=== PATIENT | male | born 1985 | race Two or more races ===

== ENCOUNTER 2024-04-22 09:04 | Emergency (ER) | payer MEDICAID, SELFPAY ==
[2024-04-22 09:13] VITALS: BP 161/100; PULSE 78; RESP 22; TEMP 36.6; O2SAT 100
--- NOTE | 2024-04-22 09:14 | PD.EDNV ---
Nausea/Vomit./Diarrhea-RME/HPI General Chief complaint: Nausea/Vomiting/Diarrhea Stated complaint: VOMITING, ANXIOUS Time Seen by Provider: 04/22/24 09:07 Arrival date/time: 04/22/24 09:04 RME / HPI RME / HPI Narrative: This section includes all my notes and documentations, including HPI, PE, MDM, Procedure Notes, and PLAN. Phil Pratt MD HPI: 38 year old male with history of depression on Zoloft presents to the ED for complaint of nausea and vomiting beginning this morning. Reports vomiting a total of 5 times, nonbloody, nonbilious. Accompanied by feeling very shaky and anxious. Patient unable to report why he is feeling anxious. Denies fevers, chills, chest pain, shortness of breath, abdominal pain, diarrhea, or constipation. No other complaints reported. ROS: Respiratory: negative except as documented in HPI. Gastrointestinal: negative except as documented in HPI. Musculoskeletal: negative except as documented in HPI. Skin: negative except as documented in HPI. Neurological: negative except as documented in HPI. Physical Exam: General:? Alert and oriented.??Appears severely anxious. Eyes:? Conjunctivae and lids clear.?? ENT:? No nasal congestion.?? Neck:? Supple.?? Heart: RRR. Lungs:? No respiratory distress.?? Abdomen: Soft with mild epigastric tenderness. Normal BS. No distention. No rebound or guarding. Skin:? Warm and dry.?? Neuro:? Alert and oriented X 3. Zofran ODT and Xanax 0.75 mg given. 0955: Patient states he threw up his Xanax and is still feeling very anxious. Ativan 2 mg IM given. He felt much better. Recommended more outpatient care. Discharge Instructions from Dr. Pratt printed for you: 1. Take omeprazole every morning and famotidine every night for 7 days then as needed for your GERD, see attached handout. 2. Zofran for nausea/vomiting. Clear liquid diet for 24 hours then advance diet slowly as tolerated. 3. See a private doctor on 04/23/2024. To make sure there is no serious intra-abdominal condition, ask for help with more investigation not available here in the ER. Such as EGD or scoping the stomach, colonoscopy or scoping the colon, and referral to see tool room supervisor. To make sure there is no serious underlying heart condition, ask to help you get more tests for your heart that cannot be done here in the ER. Such as Holter Monitor (cardiac monitoring at home from a day to even a month), heart stress test (on treadmill or with medication), echocardiogram (imaging of your heart structures), heart catherization (checking for blockages in your heart arteries), and a referral to see a Poultry Processing Supervisor. 4. Seek immediate medical care with worsening or with any concerns. Phil Pratt MD Related Data Previous Rx's ?Medication ?Instructions ?Recorded famotidine 40 mg tablet 40 mg PO QDAY #30 tabs 04/22/24 omeprazole 40 mg capsule,delayed 40 mg PO QDAY #30 caps 04/22/24 release ondansetron 4 mg disintegrating 4 mg PO TID PRN nausea and 04/22/24 tablet vomiting 5 days #10 tabs Allergies Allergy/AdvReac Type Severity Reaction Status Date / Time No Known Allergies Allergy Verified 04/22/24 09:07 Review of Systems Review of Systems Systems Reviewed: All systems reviewed, normal except as documented Past Medical History Social History SMOKING STATUS: Never smoker ED Exam Narrative Physical exam: As noted in HPI Course Quality Measures none Orders Category Date Time Status ALPRazoLAM [Xanax] Med 04/22/24 09:12 Discontinued 0.75 mg PO X1 ONE LORazepam [Ativan Inj] Med 04/22/24 09:55 Discontinued 2 mg IM X1 ONE Ondansetron Odt [Zofran Odt] Med 04/22/24 09:12 Discontinued 4 mg PO X1 ONE Vital Signs Vital signs: Vital Signs Temperature 98 F 04/22/24 09:13 Pulse Rate 78 04/22/24 09:13 Respiratory Rate 22 H 04/22/24 09:13 Blood Pressure 161/100 H 04/22/24 09:13 Pulse Oximetry (%) 100 04/22/24 09:13 Pulse ox is 100% on room air which is adequate. Nausea/Vomiting/Diarrhea MDM Narrative MDM Narrative:: Yvrose Damon am scribing for and in the presence of Dr. Pratt. Patient data External records reviewed:: None Clinical information provided by:: patient and family Social determinants that could affect healthcare access:: substance use (Methamphetamine use ) Patient has the following chronic illnesses:: Depression, anxiety How is presenting disease/condition affected by chronic disease/condition?: exacerbated by Evaluation data The following diagnostics were reviewed and interpreted by me:: other (specify) (No diagnostic tests ordered) Lab and/or radiology exams considered but not ordered:: None Interpretation Summary: FSBS 131 Medications / Prescriptions Medications / Prescriptions considered but not ordered:: None Medication administrations:: Medication Administration History Discontinued Medications Alprazolam (Alprazolam 0.25 Mg Tablet) 0.75 mg PO X1 ONE Stop: 04/22/24 09:13 Last Admin: 04/22/24 09:28 Dose: 0.75 mg Documented By: MICHAEL Lorazepam (Lorazepam 2 Mg/Ml Vial) 2 mg IM X1 ONE Stop: 04/22/24 09:56 Last Admin: 04/22/24 09:59 Dose: 2 mg Documented By: WANDA Ondansetron HCl (Ondansetron Odt 4 Mg Tabrap) 4 mg PO X1 ONE; Protocol Stop: 04/22/24 09:13 Last Admin: 04/22/24 09:28 Dose: 4 mg Documented By: MICHAEL See chart Consultations Consultation(s) initiated? (list below): No Diagnosis Nausea Differential Diagnosis: drug-induced nausea and vomiting, dehydration and other (Anxiety, GERD) Most likely diagnosis given after review of the tests above:: GERD Admission Indicated Admission indicated?: not indicated Explain why admission is indicated or not indicated:: Does not meet admission criteria Admission Request Was there a request for admission?: No Disposition Plan Disposition Plan: Discharge Discharge Attestation Discharge Attestation: The patient and all family members were given an opportunity to ask questions and understood the discharge instructions. Discharge instructions specifically effects, indications for sooner follow up or return to the emergency department, and the expected course of current diagnosis. Patient condition: Stable Discharge Plan Plan Patient Disposition: HOME (Self Care) Prescriptions/Referrals Prescriptions/Med Rec: New famotidine 40 mg tablet 40 mg PO QDAY Qty: 30 0RF omeprazole 40 mg capsule,delayed release(DR/EC) 40 mg PO QDAY Qty: 30 0RF ondansetron 4 mg tablet,disintegrating 4 mg PO TID PRN (Reason: nausea and vomiting) 5 Days Qty: 10 0RF Referrals: Kemal Luz MD [Primary Care Provider] - In 1 week Problem List Clinical Impression: GERD (gastroesophageal reflux disease) Patient/Caregiver Discharge Instructions Discharge Activity: activity as tolerated Education Materials: ED GERD (Adult), ED Panic Attack Additional Instructions: Discharge Instructions from Dr. Pratt printed for you: 1. Take omeprazole every morning and famotidine every night for 7 days then as needed for your GERD, see attached handout. 2. Zofran for nausea/vomiting. Clear liquid diet for 24 hours then advance diet slowly as tolerated. 3. See a private doctor on 04/23/2024. To make sure there is no serious intra-abdominal condition, ask for help with more investigation not available here in the ER. Such as EGD or scoping the stomach, colonoscopy or scoping the colon, and referral to see tool room supervisor. To make sure there is no serious underlying heart condition, ask to help you get more tests for your heart that cannot be done here in the ER. Such as Holter Monitor (cardiac monitoring at home from a day to even a month), heart stress test (on treadmill or with medication), echocardiogram (imaging of your heart structures), heart catherization (checking for blockages in your heart arteries), and a referral to see a Poultry Processing Supervisor. 4. Seek immediate medical care with worsening or with any concerns. Print Language: Kyrgyz Stand Alone Forms: Trudy Award Info., Patient Portal Info Letter
[2024-04-22] MEDS: ALPRazoLAM 0.25 MG TABLET 0.75 MG PO (09:28)
[2024-04-22] MEDS: ONDANSETRON ODT 4 MG TABRAP PO (09:28)
[2024-04-22] MEDS: LORazepam 2 MG/ML VIAL IM (09:59)
[2024-04-22 11:04] VITALS: BP 131/97; PULSE 61; RESP 16; TEMP 36.6; O2SAT 100
== END 2024-04-22 11:11 | disposition home or self-care (01) ==
PROVIDERS: Emergency Provider Emergency Medicine; PCP Family Medicine
DX: K21.9 Gastro-esophageal reflux disease without esophagitis (principal)
CPT/HCPCS: 96372; 99283; J2060; Q0162; A9270

== ENCOUNTER 2024-04-22 18:42 | Emergency (ER) | payer MEDICAID, SELFPAY ==
[2024-04-22 18:57] VITALS: BP 174/84; PULSE 99; RESP 19; TEMP 36.7; O2SAT 98; BMI 33.4
--- NOTE | 2024-04-22 19:06 | EDRME_ITS ---
Rapid Medical Screening Exam RME Arrival date/time: 04/22/24 18:42 38M with history of drug/alcohol use presents to ED with N/V and gen ab pain/cramping. Apparently, patient recently got out of [facility] and relapsed. Patient was here earlier today for this. Chief Complaint: General Adult/Misc Complain Vital signs: Vital Signs Temperature 98.0 F 04/22/24 18:57 Pulse Rate 99 04/22/24 18:57 Respiratory Rate 19 04/22/24 18:57 Blood Pressure 174/84 H 04/22/24 18:57 Pulse Oximetry (%) 98 04/22/24 18:57 Oxygen Delivery Method Room Air 04/22/24 18:57
[2024-04-22] MEDS: DIAZEPAM 5 MG TABLET 10 MG PO (19:12)
[2024-04-22] MEDS: DiphenhydrAMINE 25 MG CAPSULE 50 MG PO (19:13)
[2024-04-22 19:33] LABS: Basophils % (Auto) 0 % (0-2.5); Eosinophils % (Auto) 0 % (0-10); Hematocrit 40.9 % (41.0-53.0); Immature Granulocytes % (Auto) 0 % (0-0); Immature Granulocytes Auto 0.07 Thou/mm3 (0.00-0.00); Lymphocytes # (Auto) 1.4 Thou/mm3 (1.0-4.8); Lymphocytes % (Auto) 9 % (10-50); Mean Corpuscular HGB Conc 36.7 g/dl (31.0-37.0); Mean Corpuscular Hemoglobin 31.9 pg (25.0-35.0); Mean Corpuscular Volume 87 fL (80-100); Monocytes # (Auto) 0.5 Thou/mm3 (0.0-0.8); Monocytes % (Auto) 3 % (0-12); Neutrophils # (Auto) 14.3 Thou/mm3 (1.8-7.7); Neutrophils % (Auto) 88 % (37-80); Nucleated Red Blood Cell % 0 /100 WBC (0); Platelet Count 274 Thou/mm3 (140-440); RDW Standard Deviation 39.6 fL (35.1-43.9); White Blood Count 16.4 Thou/mm3 (3.8-10.6)
[2024-04-22 19:56] LABS: Alanine Aminotransferase 29 U/L (10-49); Albumin, Serum 5.3 gm/dL (3.5-5.0); Albumin/Globulin Ratio 1.6 (1.2-2.2); Alcohol, Blood Medical < 3.0 mg/dL (0-10.0); Alkaline Phosphatase 116 U/L (46-116); Anion Gap 14 (7-16); Aspartate Amino Transferase 26 U/L (0-34); BUN/Creatinine Ratio 18 Ratio (12-20); Bilirubin,Total 1.1 mg/dL (0.3-1.2); Blood Urea Nitrogen 14 mg/dL (9-23); Chloride 101 mMol/L (98-107); Creatinine (Component) 0.8 mg/dL (0.6-1.3); Estimated Creatinine Clearance 143.4 mL/min (>60); Globulin 3.3 gm/dL (2.3-3.5); Glucose 139 mg/dL (74-106); Lipase 30 U/L (12-53); Osmolality,Calculated 272 (275-295); Potassium 3.9 mMol/L (3.4-5.1); Sodium 135 mMol/L (136-145); Total Protein 8.6 gm/dL (5.7-8.2); eGFR > 60 See Note
[2024-04-22 20:08] LABS: Collection Type, Urine Clean Catch; RBC,Urine 0 /hpf (0-3); WBC,Urine 0 /hpf (0-5)
[2024-04-22 20:31] LABS: Bacteria,Urine Rare; Bilirubin,Urine Negative (Negative); Blood,Urine Negative (Negative); Clarity,Urine Clear (Clear/Hazy); Color,Urine Lt-Yellow (Lt Yel-Yel); Glucose, Urine Negative (Negative); Ketones,Urine 4+ (Negative); Leukocyte Esterase,Urine Negative (Negative); Nitrite,Urine Negative (Negative); Protein,Urine 1+ (Neg - Trace); Specific Gravity,Urine 1.029 (1.001-1.035); Squamous Epithelial Cell,Urine < 1 /hpf (0-5); Urobilinogen,Urine Negative mg/dL (0.0-1.0)
[2024-04-22 21:16] LABS: Amphetamine/Methamp Scrn,U Negative (Negative); Barbiturate Screen,Urine Negative (Negative); Benzodiazepines Screen,Urine Positive (Negative); Benzoylecgonine Screen, Ur Negative (Negative); Fentanyl Screen,Urine Negative (Negative); Opiate Screen,Urine Negative (Negative); THC Screen,Urine Positive (Negative)
[2024-04-22 21:40] VITALS: BP 169/115; O2SAT 98
[2024-04-22 21:41] VITALS: BP 169/115; PULSE 92; RESP 18; TEMP 37.1; O2SAT 100
--- NOTE | 2024-04-22 21:51 | EDNOTE_ITS ---
<Statement entered by Nichole Rausch MD - 05/06/24 11:50> As co-signing physician, I was present and available for consult prn. I concur with the plan and care as documented by the midlevel provider. ED General RME/HPI General Chief complaint: General Adult/Misc Complain Stated complaint: VOMITING, WAS SEEN EARLIER Time Seen by Provider: 04/22/24 21:30 Source: patient Arrival date/time: 04/22/24 18:42 This is a 38-year-old male significant past medical history of anxiety and depression presents to the emergency department today for symptoms of feeling anxious nausea and vomiting. He does report feeling abdominal bloating hiccups that began this morning. History of chronic marijuana use reports he smokes marijuana all day long, for his anxiety symptoms. 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 Denies alcohol use. Currently uses Zoloft 200 mg for depression not currently on any anxiolytic per PCP. Denies any Suicidal or homicidal ideation. Mode of arrival: ambulatory RME / HPI RME / HPI narrative: 04/22/24 18:42 38M with history of drug/alcohol use presents to ED with N/V and gen ab pain/cramping. Apparently, patient recently got out of [facility] and relapsed. Patient was here earlier today for this. Related Data Previous Rx's ?Medication ?Instructions ?Recorded famotidine 40 mg tablet 40 mg PO QDAY #30 tabs 04/22/24 omeprazole 40 mg capsule,delayed 40 mg PO QDAY #30 caps 04/22/24 release Allergies Allergy/AdvReac Type Severity Reaction Status Date / Time No Known Allergies Allergy Verified 04/22/24 09:07 Review of Systems Review of Systems Systems Reviewed: All systems reviewed, normal except as documented Narrative Review of Systems: Gen: No fever, no chills, no weight loss EYES: No discharge, no visual changes, no pain HEENT: No ear pain, no congestion, no sore throat PULM: No shortness of breath, no cough, no congestion CV: No chest pain, no dyspnea on exertion, no palpitations GI: +nausea, + vomiting, no diarrhea, no pain, no constipation : No frequency, no urgency,? no dysuria, positive dyspepsia and burping Musc/skel: No joint pain, no back pain Skin: No rash? ED Exam Narrative Physical exam: General: Sittiing in Exam table in no acute distress, answering questions appropriately HENT: normocephalic, atraumatic, EOMI, PERRLA, moist mucous membranes Chest: chest wall is nontender Cardiac: regular rate and rhythm, normal S1 and S2, no murmurs, rubs, or gallops, capillary refill ?2 seconds Pulmonary: clear to auscultation bilaterally, no wheezing, crackles, or rhonchi Abdominal: active bowel sounds, soft, nontender, nondistended Neuro: A&OX3, CN II-XII intact, sensation grossly intact bilaterally in UE and LE. Skin: no rashes, no ecchymosis Ext: no lower extremity edema Course Quality Measures none Orders Category Date Time Status Insert IV NOW Care 04/22/24 21:44 Completed Alcohol, Blood Medical Stat Lab 04/22/24 19:18 Completed CBC Stat Lab 04/22/24 19:18 Completed CMP [Comprehensive Metabolic Panel] Stat Lab 04/22/24 19:18 Completed Drug Screen,Urine Stat Lab 04/22/24 19:57 Completed Lipase Stat Lab 04/22/24 19:18 Completed UA [Urinalysis] Stat Lab 04/22/24 19:57 Completed Diazepam [Valium] Med 04/22/24 19:05 Discontinued 10 mg PO X1 ONE DiphenhydrAMINE [Benadryl] Med 04/22/24 19:05 Discontinued 50 mg PO X1 ONE LORazepam [Ativan Inj] Med 04/22/24 22:04 Discontinued 1 mg IVP X1 ONE LORazepam [Ativan Inj] Med 04/22/24 21:45 Discontinued 2 mg IVP X1 ONE Metoclopramide Inj [Reglan Inj] Med 04/22/24 21:44 Discontinued 10 mg IVP X1 ONE Sodium Chloride 0.9% 1000 ml [Ns] 1,000 ml Med 04/22/24 21:44 Discontinued IV 999 mls/hr Vital Signs Vital signs: Vital Signs Temperature 98.0 F 04/22/24 18:57 Pulse Rate 99 04/22/24 18:57 Respiratory Rate 19 04/22/24 18:57 Blood Pressure 174/84 H 04/22/24 18:57 Pulse Oximetry (%) 98 04/22/24 18:57 Oxygen Delivery Method Room Air 04/22/24 18:57 [facility] Patient data External records reviewed:: [facility] previous records Clinical information provided by:: patient Social determinants that could affect healthcare access:: none Patient has the following chronic illnesses:: Anxiety and depression How is presenting disease/condition affected by chronic disease/condition?: e xacerbated by Evaluation data The following diagnostics were reviewed and interpreted by me:: lab results Lab and/or radiology exams considered but not ordered:: Considered abdominal imaging however patient does not have any abdominal pain Interpretation Summary: see above Medications Medications considered but not ordered:: no Medication administrations:: Medication Administration History Discontinued Medications Diazepam (Diazepam 5 Mg Tablet) 10 mg PO X1 ONE Stop: 04/22/24 19:06 Last Admin: 04/22/24 19:12 Dose: 10 mg Documented By: Diphenhydramine HCl (Diphenhydramine 25 Mg Capsule) 50 mg PO X1 ONE Stop: 04/22/24 19:06 Last Admin: 04/22/24 19:13 Dose: 50 mg Documented By: Sodium Chloride (Ns) 1,000 mls @ 999 mls/hr IV .Q1H1M ONE Stop: 04/22/24 22:44 Last Admin: 04/22/24 22:24 Dose: 999 mls/hr Documented By: FABRICIO Lorazepam (Lorazepam 2 Mg/Ml Vial) 2 mg IVP X1 ONE Stop: 04/22/24 21:46 Last Admin: 04/22/24 22:18 Dose: Not Given Documented By: ANDREW Non-Admin Reason: Cancelled by Provider Lorazepam (Lorazepam 2 Mg/Ml Vial) 1 mg IVP X1 ONE Stop: 04/22/24 22:05 Last Admin: 04/22/24 22:13 Dose: 1 mg Documented By: FABRICIO Metoclopramide HCl (Metoclopramide Inj 5 Mg/Ml Vial 2 Ml) 10 mg IVP X1 ONE; Protocol Stop: 04/22/24 21:45 Last Admin: 04/22/24 22:24 Dose: 10 mg Documented By: FABRICIO All medications administered and effective Consultations Consultation(s) initiated? (list below): No Diagnosis Differential Diagnosis ED Complaint MDM: Anxiety, acute stress reaction, depression, cannabinoid hyperemesis syndrom Most likely diagnosis given after review of the tests above:: Anxiety, cannabinoid hyperemesis syndrome Admission Indicated Admission indicated?: not indicated Explain why admission is indicated or not indicated:: Not indicated Admission Request Was there a request for admission?: No Disposition Plan Disposition Plan: Discharge Discharge Attestation Discharge Attestation: The patient and all family members were given an opportunity to ask questions and understood the discharge instructions. Discharge instructions specifically effects, indications for sooner follow up or return to the emergency department, and the expected course of current diagnosis. Patient condition: Stable Medical Decision Making Differential Diagnosis Differential Diagnosis: Anxiety, acute stress reaction, depression, cannabinoid hyperemesis syndrom Lab Data 04/22/24 19:18 04/22/24 19:18 Labs: Lab Results 04/22/24 04/22/24 Range/Units 19:18 19:57 WBC 16.4 H (3.8-10.6) Thou/mm3 RBC 4.70 (4.50-5.90) Miln/mm3 Hgb 15.0 (13.5-16.0) g/dL Hct 40.9 L (41.0-53.0) % MCV 87 (80-100) fL MCH 31.9 (25.0-35.0) pg MCHC 36.7 (31.0-37.0) g/dl RDW Std Deviation 39.6 (35.1-43.9) fL Plt Count 274 (140-440) Thou/mm3 Neut % (Auto) 88 H (37-80) % Lymph % (Auto) 9 L (10-50) % [place] % (Auto) 3 (0-12) % Eos % (Auto) 0 (0-10) % Baso % (Auto) 0 (0-2.5) % Neut # (Auto) 14.3 H (1.8-7.7) Thou/mm3 Lymph # (Auto) 1.4 (1.0-4.8) Thou/mm3 [place] # (Auto) 0.5 (0.0-0.8) Thou/mm3 Eos # (Auto) 0.0 (0.0-0.5) Thou/mm3 Baso # (Auto) 0.0 (0.0-0.2) Thou/mm3 Immature Gran # (Auto) 0.07 H (0.00-0.00) Thou/mm3 Absolute Nucleated RBC 0.00 (0.00-0.00) Thou/mm3 Immature Gran % 0 (0-0) % Nucleated RBC % 0 (0) /100 WBC Sodium 135 L (136-145) mMol/L Potassium 3.9 (3.4-5.1) mMol/L Chloride 101 (98-107) mMol/L Carbon Dioxide 20.0 (20.0-31.0) mMol/L Anion Gap 14 (7-16) BUN 14 (9-23) mg/dL Creatinine 0.8 (0.6-1.3) mg/dL Estim Creat Clear Calc 143.4 (>60) mL/min eGFR > 60 (60 - ) See Note BUN/Creatinine Ratio 18 (12-20) Ratio Glucose 139 H (74-106) mg/dL Calculated Osmolality 272 L (275-295) Calcium 11.0 H (8.3-10.6) mg/dL Corrected Calcium 11.0 H (8.5-10.1) mg/dL Total Bilirubin 1.1 (0.3-1.2) mg/dL AST 26 (0-34) U/L ALT 29 (10-49) U/L Alkaline Phosphatase 116 (46-116) U/L Total Protein 8.6 H (5.7-8.2) gm/dL Albumin 5.3 H (3.5-5.0) gm/dL Globulin 3.3 (2.3-3.5) gm/dL Albumin/Globulin Ratio 1.6 (1.2-2.2) Lipase 30 (12-53) U/L Ur Collection Type Clean Catch Urine Color Lt-Yellow (Lt Yel-Yel) Urine Clarity Clear (Clear/Hazy) Urine pH 8.0 H (5.0-7.0) Ur Specific [place] 1.029 (1.001-1.035) Urine Protein 1+ A (Neg - Trace) Urine Glucose (UA) Negative (Negative) Urine Ketones 4+ A (Negative) Urine Blood Negative (Negative) Urine Nitrite Negative (Negative) Urine Bilirubin Negative (Negative) Urine Urobilinogen (Auto) Negative (0.0-1.0) mg/dL Ur Leukocyte Esterase Negative (Negative) Urine RBC 0 (0-3) /hpf Urine WBC 0 (0-5) /hpf Ur Squamous Epith Cells < 1 (0-5) /hpf Urine Bacteria Rare (None) Urine Opiates Screen Negative (Negative) Urine Fentanyl Screen Negative (Negative) Ur Barbiturates Screen Negative (Negative) U Amphetamin/Meth Scrn Negative (Negative) U Benzodiazepines Scrn Positive A (Negative) U Cocaine Metab Screen Negative (Negative) U Marijuana (THC) Screen Positive A (Negative) Ethyl Alcohol < 3.0 (0-10.0) mg/dL Discharge Plan Plan Patient Disposition: HOME (Self Care) Patient condition on transfer: Stable Prescriptions/Referrals Prescriptions/Med Rec: No Action famotidine 40 mg tablet 40 mg PO QDAY Qty: 30 0RF omeprazole 40 mg capsule,delayed release(DR/EC) 40 mg PO QDAY Qty: 30 0RF Referrals: Sylvester Carter PA-C [Primary Care Provider] - In 1 week Problem List Clinical Impression: Cannabinoid hyperemesis syndrome, Anxiety Patient/Caregiver Discharge Instructions Discharge Activity: activity as tolerated Education Materials: Cannabinoid Hyperemesis Syndrome, ED Anxiety Reaction Additional Instructions: - It is very important that you follow-up with your primary doctor for additional treatment for anxiety. -Continue take your medications as directed. -Is very important for you to stop smoking marijuana which can exacerbate your symptoms. -If your medications are not sufficient you might need to speak with a behavioral health specialist, or psychologist. Return to the emergency department this any worsening symptoms change in condition. Print Language: English Stand Alone Forms: Trudy Award Info., Patient Portal Info Letter MANUEL/KIKO Supervising Physician MANUEL/KIKO Supervising Physician: Dr. Landin
[2024-04-22 22:09] VITALS: BP 160/111; O2SAT 97
[2024-04-22] MEDS: LORazepam 2 MG/ML VIAL 1 MG IVP (22:13)
[2024-04-22] MEDS: METOCLOPRAMIDE INJ 5 MG/ML VIAL 2 ML 10 MG IVP (22:24)
[2024-04-22] MEDS: SODIUM CHLORIDE 0.9% 1000 ML 1,000 ML 999 ML IV (22:24)
[2024-04-22 22:26] VITALS: BP 144/90; PULSE 94; RESP 16; O2SAT 95
[2024-04-22 22:29] VITALS: BP 144/90; O2SAT 95
--- NOTE | 2024-04-22 22:59 | PC.NURSE ---
Pt has been sleeping since shortly after arival to . pt given additional benzo and continued sleeping. Pt woke up with minimal tactile stimulation . Pt ambulated without difficulty.
== END 2024-04-22 22:50 | disposition home or self-care (01) ==
PROVIDERS: Physician Assistant; Emergency Provider Emergency Medicine; PCP Physician Assistant
DX: R11.2 Nausea with vomiting, unspecified (principal); F12.90 Cannabis use, unspecified, uncomplicated; F41.9 Anxiety disorder, unspecified
CPT/HCPCS: 36415; 80053; 80307; 80320; 81001; 83690; 85025; 96374; 96375; 99284; J2060; J2765; J7030; A9270; G0480